=== PATIENT | female | born 1995 | race Caucasian/White ===

== ENCOUNTER 2017-05-31 13:55 | Inpatient (IN) | payer OTHER ==
[~2017-05-31] VITALS: Ht 157.5 cm; Wt 52.2 kg
[2017-05-31] MEDS ORDERED: SYNTHROID50 MCG (14:03)
== END 2017-06-05 11:38 | disposition home or self-care (01) | DRG 392 ==
LOC: ER 13:55 → SEC-K 19:42 → SURH 19:42
DX: A09 Infectious gastroenteritis and colitis, unspecified (principal); E86.0 Dehydration; E03.8 Other specified hypothyroidism

== ENCOUNTER → 2019-04-24 10:03 | Outpatient (CLI) | payer OTHER ==
[~2019-04-24 10:03] MED LIST: SYNTHROID50 MCG
== END | disposition home or self-care (01) ==
LOC: LAB 10:03
DX: J11.1 Influenza due to unidentified influenza virus with other respiratory manifestations (principal)

== ENCOUNTER 2019-05-07 14:25 | Inpatient (IN) | payer OTHER ==
[2019-05-08] MEDS ORDERED: CIMETIDINE300 MG (07:46)
[2019-05-08] MEDS ORDERED: LEVO-T75 MCG PO (07:47)
== END 2019-05-12 11:46 | disposition home or self-care (01) | DRG 153 ==
LOC: SURH 14:25
PROVIDERS: ADMIT Internal Medicine
PROC: BW4FZZZ Ultrasonography of Neck (ICD-10-PCS; principal; 2019-05-07)
DX: J02.0 Streptococcal pharyngitis (principal); E03.8 Other specified hypothyroidism; E86.0 Dehydration; E87.8 Other disorders of electrolyte and fluid balance, not elsewhere classified; R59.0 Localized enlarged lymph nodes; R31.0 Gross hematuria